=== PATIENT | female | born 1980 | race Caucasian/White ===

== ENCOUNTER 2022-07-07 19:11 | Emergency (ER) | payer MEDICAID ==
[~2022-07-07] VITALS: Ht 160 cm; Wt 99.8 kg
--- NOTE | 2022-07-07 19:11 | NUR ---
PT BIBA ALS ER BED 5
[2022-07-07 19:12] VITALS: BP 158/72
--- NOTE | 2022-07-07 19:12 | NUR ---
Patient BIB by ALS from [facility]. C/O Accident Overdose x today. Per reported, patient took Xanax unknown dose from her friend from [facility], BS 98, VSS, no medication given at the scence by ALS. A/O,X4, slow response and answers question, denies pain, no nausea, vomiting, patient reported " I did not harm myself, I need medication for sleep and sober." PMHx: Drug Abuse
--- NOTE | 2022-07-07 19:28 | NUR ---
Dr. Bass examining patient.
--- NOTE | 2022-07-07 19:32 | NUR ---
Called posion control- recommendation test CMP, Drug sceen, Tylenol, ASA and observation 4-6 hours, Avoid medicate Lorazepam.
[2022-07-07] MEDS ORDERED: NACL 0.9% 1,000 ML IV ONE (19:40)
--- NOTE | 2022-07-07 20:04 | NUR ---
Blood for labwork drawn from left hand by service coordinator elderly facility. Patient tolerated well.
[2022-07-07 20:12] LABS: BASOPHILS % (AUTO) 0.3 % (0.0-2.0); EOSINOPHILS # (AUTO) 0.1 K/uL (0-0.4); EOSINOPHILS % (AUTO) 1.3 % (0.0-4.0); HEMATOCRIT 39.2 % (36-48); HEMOGLOBIN 13.3 g/dL (12.0-16.0); LYMPHOCYTES # (AUTO) 4.3 K/uL (2.5-16.5); LYMPHOCYTES % (AUTO) 41.6 % (20.5-51.1); MEAN CORPUSCULAR HEMOGLOBIN 28 pg (27-31); MEAN CORPUSCULAR HGB CONC 34 g/dL (33-37); MONOCYTES # (AUTO) 0.9 K/uL (0.8-1.0); MONOCYTES % (AUTO) 8.9 % (1.7-9.3); NEUTROPHILS % (AUTO) 47.9 % (42.2-75.2); PLATELET COUNT (AUTO) 234 K/uL (140-450); RED BLOOD CELL COUNT(AUTO) 4.79 MIL/uL (4.20-5.40); RED CELL DISTRIBUTION WIDTH 14.2 % (11.6-13.7); WHITE BLOOD COUNT (AUTO) 10.4 K/uL (4.8-10.8)
[2022-07-07 20:42] LABS: ALBUMIN 3.7 g/dL (3.4-5.0); ANION GAP 10.8 (8-16); ASPARTATE AMINOTRANSFERASE 25 U/L (15-37); CHLORIDE 100 mmol/L (98-107); CREATININE 0.9 mg/dL (0.6-1.3); GFR ARICAN-AMERICAN 88 mL/min (>90); GLUCOSE 89 mg/dL (74-106); POTASSIUM 3.8 mmol/L (3.5-5.1); SALICYLATE 2.9 mg/dL (2.8-20.0); SODIUM SERUM 132 mmol/L (136-145); TOTAL BILIRUBIN 0.3 mg/dL (0.0-1.0); UREA NITROGEN, BLOOD 15 mg/dL (7-18)
[2022-07-07 20:44] LABS: ACETAMINOPHEN < 0.5 ug/ml (10-30)
--- NOTE | 2022-07-07 22:55 | NUR ---
Urine sample obtained and sent to lab.
--- NOTE | 2022-07-07 23:20 | NUR ---
[facility], Ok by Dr. Bass.
[2022-07-07 23:27] LABS: BARBITURATE, URINE NEGATIVE ng/ml (NEG <=200); BENZODIAZEPINE, URINE POSITIVE ng/mL (NEG <=200); CANNABINOID, URINE NEGATIVE ng/mL (NEG <=50); COCAINE, URINE NEGATIVE ng/mL (NEG <=300); OPIATE, URINE NEGATIVE ng/mL (NEG <=2000); PHENCYCLIDINE SCREEN,URINE NEGATIVE ng/mL (NEG <=25)
[2022-07-08 00:02] VITALS: BP 104/74
--- NOTE | 2022-07-08 00:02 | NUR ---
Patient discharged with v/s stable. Written and verbal after care instructions given and explained. Patient verbalized understanding. Ambulatory with steady gait. All questions addressed prior to discharge. Advised to follow up with PMD.
== END 2022-07-08 00:02 | disposition home or self-care (01) ==
LOC: MED 19:11
DX: Z76.1 Encounter for health supervision and care of foundling (principal); T42.4X5A Adverse effect of benzodiazepines, initial encounter; F17.210 Nicotine dependence, cigarettes, uncomplicated; Y92.89 Other specified places as the place of occurrence of the external cause
CPT/HCPCS: 36415; 80053; 80305; 84703; 85025; 96360; 99285; G0480; G0482; J7030